=== PATIENT | female | born 1955 | race Caucasian/White ===

== ENCOUNTER 2016-08-16 12:18 | Emergency (ER) | payer OTHER ==
[~2016-08-16] VITALS: Ht 165.1 cm; Wt 110.0 kg
[~2016-08-16 12:18] MED LIST: ATEN50TA7 PO; HYDR25TA4 PO; LISI10TA PO; LOVA40TA PO; NA P133E23 RC; PRO20 PO
[2016-08-16 12:33] VITALS: BP 181/84; PULSE 109; RESP 26; O2SAT 95
--- NOTE | 2016-08-16 12:38 | ED.REPORT ---
HPI-Chest Pain 40 and Over Date of Service August 16, 2016 ED Provider: Patient is a 61 year old female with history of hypertension, hyperlipidemia, depression, chronic obstructive pulmonary disease, nicotine and alcohol dependence who presents to [facility] Emergency Department via paramedics complaining of rapid heart rate and chest pressure. Patient has been seen earlier this morning at urgent care where she was diagnosed with tachycardia. Patient states she went to work this morning as usual, but about an hour later she started having rapid heart rate and left posterior thoracic back pain. She checked her heart rate at that time and it was 122 so she decided to go to urgent care. Urgent care doctor called paramedics and she was transported to the Hospital Emergency Department. While en route she developed anterior chest pain pressure, nausea and diaphoresis. She received 1 dose of nitroglycerin after which her chest pressure was resolved. Patient reports being a heavy drinker for most of her life. She drinks at least 5 servings of whiskey with diet soda daily. She does not report history of alcohol withdrawal. Her last alcohol intake was yesterday. She has a 40-pack- year smoking history. She tried to quit multiple times using counseling, medications, cold turkey approach, but none has worked for her so far. She reports being under lots of stress lately. Her has a stroke, pneumonia and kidney failure within the last few months, and pacemaker placed 1 week ago. They also take care of her 's 92 year old mother. Nursing Notes Stated Complaint: RAPID HEART RATE Chief Complaint: Chest Pain Allergies: Coded Allergies: Penicillins (Verified Allergy, Severe, SWELLING, 07/21/13) Scheduled Nitrofurantoin Macrocrystal (Nitrofurantoin) 25 Mg Capsule 100 MG PO BID General Time Seen by MD: 12:36 Transferred From: Private physician office Chief Complaint Back pain, Other (tachycardia) Hx Obtained From: Patient Arrived By: Ambulance Sudden in Onset?: Yes Onset Occurred: 1 - 4 hours ago Symptom Duration: Since onset Location: : Back (left side) Similar Sx Previous: No Risk Factors Smoking history Hyperlipidemia Hypertension Past Medical History Past Medical History Notes: Hypertension Hyperlipidemia Alcohol dependence Nicotine dependence Depression COPD Past Surgical History Reports: Cholecystectomy, Hysterectomy Smoking History Current Every Day Smoker (40 pack year history) Social History Alcohol Use: >5 per day (heavy alcohol drinker for the most of her life) Drug Use: Denies drug use Other Social History: Ambulatory Status Independent Physical Exam Initial Vital Signs Vital Signs (First) Date Time Temp Pulse Resp B/P Pulse Ox O2 Delivery O2 Flow Rate FiO2 08/16/16 12:33 36.9 109 26 181/84 95 Room Air Initial VS: Reviewed General/Constitutional: Awake, Alert Behavior: Positive: Anxious Appearance / Presentation: Positive: Cyanotic (tounge), Frail Respiratory / Chest: Atraumatic, Breath sounds NL Wheezing / Retractions: Positive: Wheezing mild (left lung) Cardiovascular: No murmurs, Pulses = bilaterally (radial and pedal) Heart Rate / Rhythm: Positive: Tachycardia Abdomen: Non-tender, No distention Neck: Atraumatic, No adenopathy, No swelling, Thyroid NL Lower Extremity / Pelvis / MS: No swelling, Neurologic intact, Vascular intact , No edema Color / Condition: Positive: Diaphoresis present Rash / Lesion Location: Positive: Shoulder L (multiple scars from previous surgeries) Neurologic: Oriented X3, Speech NL, No motor deficits, Memory NL Movement Abnormality: Positive: Tremor (hands) Interpretation & Diagnostics Lab Results Interpretation Result Diagram: 08/16/16 1238 08/16/16 1238 Test 08/16/16 12:38 08/16/16 13:56 08/16/16 14:20 White Blood Count 5.7th/mm3 (3.8-10.1) Red Blood Count 4.48mil/mm3 (3.90-5.20) Hemoglobin 15.9g/dL (12.0-15.6) Hematocrit 42.5% (35.0-46.0) Mean Corpuscular Volume 94.9fL (81-100) Mean Corpuscular Hemoglobin 35.5pg (27.0-35.0) Mean Corpuscular Hemoglobin Concent 37.4% (32.0-37.0) Red Cell Distribution Width 11.2% (12.3-15.4) Platelet Count 252bil/L (150-400) Neutrophils (%) (Auto) 69.3% (40-74) Lymphocytes (%) (Auto) 22.0% (14-46) Monocytes (%) (Auto) 7.4% (4-12) Eosinophils (%) (Auto) 0.5% (0-5) Basophils (%) (Auto) 0.4% (0-3) Sodium Level 127mEq/L (134-144) Potassium Level 3.3mEq/L (3.5-5.2) Chloride Level 87mEq/L (97-108) Carbon Dioxide Level 19mmol/L (18-29) Blood Urea Nitrogen 6mg/dL (8-27) Creatinine 0.35mg/dL (0.57-1.00) Estimat Glomerular Filtration Rate 269mL/min (>59) Glucose Level 127mg/dL (60-99) Calcium Level 9.5mg/dL (8.5-10.1) Magnesium Level 1.4mg/dL (1.6-2.6) Total Bilirubin 0.5mg/dL (0.0-1.2) Aspartate Amino Transf (AST/SGOT) 47U/L (0-50) Alanine Aminotransferase (ALT/SGPT) 36U/L (0-32) Alkaline Phosphatase 75U/L (25-165) Total Protein 7.9g/dL (6.4-8.4) Albumin 4.7g/dL (3.4-5.0) Urine Color Yellow (YELLOW) Urine Appearance Hazy (CLEAR,HAZY) Urine pH 6.5 (5.0-8.0) Urine Specific Agar 1.010 (1.003-1.035) Urine Protein Negativemg/dL (NEG,TRACE) Urine Glucose (UA) Negativemg/dL (NEGATIVE) Urine Ketones Tracemg/dL (NEGATIVE) Urine Occult Blood Small (NEGATIVE) Urine Nitrite Positive (NEGATIVE) Urine Bilirubin Negative (NEGATIVE) Urine Urobilinogen Normalmg/dL (NORMAL) Urine Leukocyte Esterase Moderate (NEGATIVE) Urine RBC 0-2/hpf (0-2) Urine WBC 11-50/hpf (0-5) Urine Epithelial Cells Occasional/hpf (NONE-MOD) Urine Crystals None seen (NONE SEEN) Urine Bacteria Many/hpf (NONE-FEW) Urine Hyaline Casts None/lpf (NONE) Urine Granular Casts None seen (NONE SEEN) Urine Waxy Casts None seen (NONE SEEN) Urine Red Blood Cell Casts None seen (NONE SEEN) Urine White Blood Cell Casts None seen (NONE SEEN) Urine Mucus None seen (None Seen) Urine Trichomonas None seen (NONE SEEN) Urine Yeast None (NONE SEEN) Urinalysis Comment None Urine Culture Reflexed Indicated Troponin T < 0.010ug/L (0.0-0.011) ECG Interpretation Interpreted by: ED physician (Dr. Prince) Normal ECG Interpretation: Normal sinus rhythm Abnormal Rate: 110 Rhythm / Conduction: Tachycardia CBC Interpretation CBC normal BMP / CMP Interpretation Na low, K+ low X-Ray Chest Interpretation Chest Xray Interpretation: Interpretation / Wet Read by: Interpret - Radiologist ( No acute cardiopulmonary disease. ) Re-Eval/Medical Decision Med Decision/Clinical Course Patient's symptoms are most likely related to anxiety and heavy alcohol abuse. Patient appears to be in sinus rhythm, tachycardic with heart rate of 110. No acute ischemic changes on EKG. Troponin is negative 2. Patient denies current chest pain. Patient received 1 mg of lorazepam IV anxiety and 1 L of normal saline intravenously for hydration. Her blood pressure and heart rate has improved. Patient was found to have urinary tract infection. A prescription for nitrofurantoin was given to the patient upon discharge. Patient will follow up with her primary care provider, Dr. Brooks, within a week. Discharge & Departure Primary Impression: Non-cardiac chest pain Additional Impressions: Anxiety Urinary tract infection Alcohol abuse Ruled Out: STEMI (ST elevation myocardial infarction) Disposition: Home Discharge Condition Condition: Stable Additional Instructions: Thank you for coming in today. You do not have a heart attack which is great news. You do have anxiety and alcohol dependence. Please follow-up with your primary care provider, Dr. Brooks, to discuss ways of alcohol dependence treatment. You should also have an workup done of your posterior left thoracic pain. You were found to have a urinary tract infection. You are given a prescription for Nitrofurantoin. Please take 100 mg orally twice a day for 5 days. Follow up with Dr. Brooks upon completion of the treatment. Referrals: Adria Brooks MD (PCP) EDSupervising Provider for [facility]: Deborah Prince MD Attending Statement Seen and examined with Dr. Chavarria. Agree with assessment and plan as above. No evidence of acute STEMI. Suspect much of her symptoms are alcohol withdrawal related. Agree with nitrofurantoin to treat the incidentally found UTI. Deborah Prince MD August 16, 2016 12:38 Saige Chavarria DO August 16, 2016 13:31
[2016-08-16 12:42] LABS: BASOPHILS % (AUTO) 0.4 % (0-3)
[2016-08-16 12:44] LABS: EOSINOPHILS % (AUTO) 0.5 % (0-5); MONOCYTES % (AUTO) 7.4 % (4-12); Mean Corpuscular Hemoglobin 35.5 pg (27.0-35.0); Mean Corpuscular Volume 94.9 fL (81-100); NEUTROPHILS % (AUTO) 69.3 % (40-74); Platelet Count 252 bil/L (150-400)
[2016-08-16 12:49] VITALS: BP 154/80; PULSE 105; RESP 12; O2SAT 95
--- NOTE | 2016-08-16 13:07 | DRSVH ---
PROCEDURE: X-RAY CHEST ONE VIEW, PORTABLE ([id number]) INDICATIONS: POSTERIOR CHEST PAIN, TACHYCARDIA TECHNIQUE: One view of the chest was acquired. COMPARISON: [facility], CR, CHEST 1 VIEW, 09/16/2014, 13:16. [facility], CR, CHEST 1VW (PORTABLE), 06/12/2013, 13:30. FINDINGS: Surgical changes and devices: None. Lungs and pleura: No pleural effusions or pneumothorax. Lungs are clear. Mediastinum: Mediastinal contours appear normal. Heart size is normal. Bones and chest wall: Old left proximal humeral shaft fracture redemonstrated with both sclerotic and lucent bony changes as well as residual partial screw involving the proximal humeral shaft which jud ears unchanged from prior exam. IMPRESSION: No acute cardiopulmonary disease. Dictated by: Everardo Rojo [facility] Interpreted: Sofiya Jackson MD on 08/16/2016 at 13:04 Transcribed by: RICARDO on 08/16/2016 at 13:06 Approved by: Sofiya Jackson MD, PhD on 08/16/2016 at 16:36
[2016-08-16 13:11] LABS: TROPONIN T < 0.010 ug/L (0.0-0.011)
[2016-08-16 13:20] LABS: Magnesium 1.4 mg/dL (1.6-2.6)
[2016-08-16] MEDS ORDERED: 0.9% Sodium Chloride 1,000 ML IV ONE (13:35)
[2016-08-16 14:19] LABS: APPEARANCE,URINE HAZY (CLEAR,HAZY); COLOR,URINE YELLOW (YELLOW); OCCULT BLOOD,URINE SMALL (NEGATIVE); PH,URINE 6.5 (5.0-8.0); UROBILINOGEN,URINE NORMAL (NORMAL)
[2016-08-16 14:57] VITALS: BP 158/69; PULSE 101; RESP 16; O2SAT 98
[2016-08-16] MEDS ORDERED: NITR25CA2 PO (15:03)
[2016-08-16 15:28] VITALS: BP 149/75; PULSE 102; RESP 22; O2SAT 97
== END 2016-08-16 15:29 | disposition home or self-care (01) ==
LOC: EDUNIT# 12:18 → SED 12:18 → EDBD 12:18 → SED 15:29
DX: R07.89 Other chest pain (principal); F41.9 Anxiety disorder, unspecified; N39.0 Urinary tract infection, site not specified; F10.10 Alcohol abuse, uncomplicated; I10 Essential (primary) hypertension; E78.5 Hyperlipidemia, unspecified; F17.210 Nicotine dependence, cigarettes, uncomplicated; B96.20 Unspecified Escherichia coli [E. coli] as the cause of diseases classified elsewhere; Z88.0 Allergy status to penicillin
CPT/HCPCS: 36415; 71010; 80053; 81000; 83735; 84484; 85025; 87086; 87088; 87186; 93005; 96361; 96374; 99285; J2060; J7030